=== PATIENT | male | born 1955 | race Caucasian/White ===

== ENCOUNTER 2023-02-20 06:30 | Day surgery (SDC) | payer OTHER, MEDICARE ==
--- NOTE | 2023-02-18 10:13 | RAD REPORT ---
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 Lungs: No evidence of edema or pneumonia. Pleural: No significant pleural effusions or pneumothorax. Cardiac: The heart size is within normal limits. Mediastinum: Within normal limits. Bones: No acute fractures. Other: None IMPRESSION: No acute cardiopulmonary disease.
[2023-02-18 10:20] LABS: Absolute Lymphocytes (CBC) 1.9 K/uL (0.7-4.9); Lymphocytes % 32.7 % (15.3-44.8); MCV 90.3 fL (80-100); Platelets 137 thou/uL (152-406); RBC Red Blood Cell Count 4.99 M/uL (4.33-5.43)
[2023-02-18 10:32] LABS: Potassium 4.1 mEq/L (3.5-5.1)
--- NOTE | 2023-02-18 17:56 | EKG ---
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
[2023-02-20] MEDS ORDERED: HEPARIN 5000 UNIT/ML 1 ML VIAL ONE (07:02)
[2023-02-20] MEDS ORDERED: VERAPAMIL HCL 10 MG/4 ML VIAL IV ONE (07:02)
[2023-02-20] MEDS ORDERED: MIDAZOLAM HCL 2 MG/2 ML INJ ONE (07:02)
[2023-02-20] MEDS ORDERED: LIDOCAINE 1% 20 ML MDV ONE (07:02)
[2023-02-20] MEDS ORDERED: FENTANYL CITR 100 MCG/2 ML ONE (07:02)
[2023-02-20] MEDS ORDERED: HEPA 1000U/500MLS 2,000 UNIT/1,000 ML BAG IV ONE (07:02)
[2023-02-20] MEDS ORDERED: CLOPIDOGREL 75 MG TABLET ONE (07:02)
[2023-02-20] MEDS ORDERED: NA CHLORIDE 0.9% 500 ML ONE (07:02)
[2023-02-20] MEDS ORDERED: HEPARIN 10,000 UNIT/10 ML VIAL IV ONE (07:03)
[2023-02-20] MEDS ORDERED: NITROGLYCERIN/D5W 25 MG/250 ML BTL IV ONE (07:03)
[2023-02-20] MEDS ORDERED: NITROGLYCERIN 100 MCG/ML SYR (for cath lab use only) IV ONE (07:03)
[2023-02-20] MEDS ORDERED: ASPIRIN 325 MG TAB ONE (07:03)
[2023-02-20] MEDS ORDERED: ATROPINE SULF 1 MG/10 ML SYR IV ONE (07:03)
[2023-02-20] MEDS ORDERED: TICAGRELOR 90 MG TABLET PO ONE (07:03)
[2023-02-20 09:04] VITALS: TEMP 97
[2023-02-20 10:36] VITALS: BP 123/63; O2SAT 99
--- NOTE | 2023-02-20 19:21 | OP ---
Date of Procedure: 02/20/2023 Surgeon: MINISTERIO SHELTON Procedures Performed: 1.Selective coronary angiogram. 2.Left heart catheterization. Indication: Unstable angina with abnormal stress test. Access: Right radial artery 6-Malay closed with TR band. Complications: None. Bleeding: Less than 20 mL. Description Of Procedure: After risks, benefits, alternatives were explained, patient agreed to proc eed and signed informal consent. Patient was brought into the cardiac catheterization laboratory, pr epped and draped in usual sterile fashion. Then I accessed right radial artery using pediatric micro puncture kit, placed 6-Malay Slender sheath and took 5-Malay Scalf 4.0 catheter into the aortic lindsay t over a J-wire, engaged the left main and then right coronary artery, took standard views and then t he catheter was pushed over the wire into the LV, measured the LVEDP and pullback did not record any gradient and then I removed the catheter and the sheath and placed TR band with good hemostasis. Findings: 1.Left main; distally occluded 60%. 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 3.Left circumflex; 90% to 99% ostial to proximal. 4.RCA; very large and dominant with proximal 60 and then proximal to mid 80% stenosis and then lumin al irregularities and the PLB has mid 60% stenosis. 5.Elevated LVEDP at 19 mmHg. Conclusion: Severe multivessel coronary artery disease. Recommendation: Transfer for emergent CABG. SR/MODL Voice ID: [id number] Report ID: [id number]
== END 2023-02-20 10:37 | disposition short-term general hospital (02) ==
LOC: CCL 06:30
PROVIDERS: ATTEND Internal Medicine
DX: I25.110 Atherosclerotic heart disease of native coronary artery with unstable angina pectoris (principal); I25.82 Chronic total occlusion of coronary artery; E78.2 Mixed hyperlipidemia; Z79.899 Other long term (current) drug therapy
CPT/HCPCS: 36415; 71046; 76937; 80048; 85025; 85610; 85730; 93005; 93458; C1893; J0461; J1644; J2001; J2250; J3010; J7040; Q9966

== ENCOUNTER 2023-05-13 07:11 | Day surgery (SDC) | payer OTHER, MEDICARE ==
[2023-05-09 15:40] LABS: Absolute Lymphocytes (CBC) 1.7 K/uL (0.7-4.9); Hematocrit 38.7 % (39.6-49.0); Lymphocytes % 32.4 % (15.3-44.8); MCV 86.3 fL (80-100); MPV 8.8 fL (7.6-11.3); Platelets 159 thou/uL (152-406); RBC Red Blood Cell Count 4.49 M/uL (4.33-5.43)
[2023-05-09 15:49] LABS: Protime INR 1.07
[2023-05-09 16:10] LABS: Potassium 4.3 mEq/L (3.5-5.1)
[2023-05-13] MEDS: Ringers Lactate 1,000 ML IV ONE (07:35)
[2023-05-13] MEDS ORDERED: CEFAZOLIN SODIUM 1 GM/VIAL ONE (07:43)
[2023-05-13] MEDS ORDERED: MIDAZOLAM HCL 2 MG/2 ML INJ ONE ×2 (08:16→13:32)
[2023-05-13] MEDS ORDERED: ROCURONIUM 50 MG/5 ML VIAL IV ONE (08:16)
[2023-05-13] MEDS ORDERED: FENTANYL CITR 100 MCG/2 ML ONE ×2 (08:16→13:32)
[2023-05-13] MEDS ORDERED: propofoL 200 MG/20 ML VIAL IV ONE (08:16)
[2023-05-13] MEDS ORDERED: KETOROLAC 30 MG/ML INJ ONE (08:16)
[2023-05-13] MEDS ORDERED: ONDANSETRON 4 MG/2 ML VIAL ONE (08:19)
[2023-05-13] MEDS ORDERED: LIDOCAINE 2% MPF 5 ML VIAL ONE (08:19)
[2023-05-13] MEDS ORDERED: KETAMINE HCL IN 0.9 % NACL 50 MG/5 ML SYRINGE IV ONE (08:28)
[2023-05-13] MEDS ORDERED: EPHEDRINE SULF 50 MG/ML VIAL ONE (09:09)
--- NOTE | 2023-05-13 09:39 | P.BOP ---
Preoperative diagnosis: tender right inguinal hernia Postoperative diagnosis: same Primary procedure: Laparoscopic repair of tender right inguinal hernia with mesh Estimated blood loss: <10cc Specimen: sac Findings: direct and indirect inguinal hernias Anesthesia: General Complications: None Implants: 3d medium Transferred to: Recovery Room Condition: Good
[2023-05-13] MEDS ORDERED: NEOSTIGMINE 1 MG/ML -10 ML VIAL ONE (09:47)
[2023-05-13] MEDS ORDERED: GLYCOPYRROLATE 0.2 MG/ML SYR ONE (09:47)
[2023-05-13 10:52] VITALS: TEMP 97.5; O2SAT 99
[2023-05-13] MEDS ORDERED: Ringers Lactate 1,000 ML IV ONE (11:22)
[2023-05-13] MEDS ORDERED: TAMSULOSIN 0.4 MG SR CAP PO ONE (12:08)
[2023-05-13] MEDS ORDERED: TAMSULOSIN 0.4 MG SR CAP ONE (12:28)
[2023-05-13 13:04] VITALS: BP 105/60
--- NOTE | 2023-05-14 11:59 | DS ---
Date of Discharge: 05/13/2023 Condition: Stable. Disposition: Home. Activity: As tolerated. No heavy lifting. Plan: Follow up in my office in 1 week. Call for appointment at [phone]. Cold compress of the right inguinal region for about 24 hours. Procedure: Laparoscopic repair of right inguinal hernia with mesh. Diagnosis: Tender right inguinal hernia. MAEGAN/NOLA Voice ID: [id number] Report ID: [id number]
--- NOTE | 2023-05-14 11:59 | OP ---
Date of Procedure: 05/13/2023 Surgeon: Chapo Murray MD Preoperative Diagnosis: Tender right inguinal hernia. Postoperative Diagnosis: Tender right inguinal hernia. Procedure: Laparoscopic repair of tender right inguinal hernia with mesh. Estimated Blood Loss: Less than 10 cc. Specimen: Hernia sac. Finding: Direct and indirect hernias. Anesthesia: General plus local. Complications: None. Implant: 3D medium mesh. Indications: This is a case of a 68-year-old patient who came to us with a tender right inguinal her alejandro. Laparoscopic versus open repair with mesh benefits, alternatives, and risks were fully explaine d to the patient which include, but not limited to, infection, bleeding, damage to adjacent structure s, anesthesia complication, recurrence, chronic pain, chronic numbness, IA, and even . He also understands this may not relieve any symptoms. He might need more than one surgical intervention. Kiera nickerson also explained the use of mesh pros and cons. He signed a consent. Description Of Procedure: The patient was brought to the operating room, placed in supine position. Anesthesia was done without complication. A time-out was called. The genitalia and abdomen were pr epped and draped in sterile fashion. Local anesthesia was applied followed by sharp incision of the skin in the infraumbilical region. Incision was carried down until we found the anterior rectus sun th that we opened on the right side. Muscle retracted laterally to expose the posterior rectus sheat h. The extraperitoneal space was gently developed with the help of blunt dissection. Then, a balloo n tip trocar was placed in that area directed to the pubic symphysis and the balloon was inflated und er direct visualization with the laparoscope. After that, we deflated the balloon, removed the ballo on and then inflated the area and put the cameras, under view with the cameras. At that moment, unde r direct visualization, we put a 5 mm trocar just above the pubic symphysis and another one half way between the first and the second one. Under direct visualization, we proceeded to develop the preper itoneal space even better, exposed the inferior epigastric vessels and keeping them anterior. Jed 's ligament was dissected laterally to a junction with the iliac veins. The dissection continued inf eriorly to the iliopubic tract avoiding damage to the femoral branch of the genitofemoral nerve and l ateral femoral cutaneous nerve. The cord structures were carefully skeletonized and we noticed two h ernias, one hernia in the cord structures and another one medial and lateral. The indirect hernia wa s carefully reduced into the abdominal cavity after gentle dissection and then the direct hernia sac was also reduced and the hernia sac was removed. No bleeding. At that moment, I introduced through the trocar site, a 3D mesh and placed it to cover direct and indirect spaces. The mesh was secured i n place lateral and superior to the iliopubic tract and inferior and medial to the Jed's ligament with the help of [employer]. After ensuring adequate hemostasis, while holding the mesh in place and m aking sure the hernia sac is still reduced, we proceeded to deflate the area under direct visualizati on. Trocars were removed. Anterior rectus sheath was closed with 3-0 chromic at the area with insuf flation was stopped and removed and then the skin was approximated with rebekah. Sponge counts and i nstrument counts were correct. Patient tolerated the procedure well. Patient was sent to Recovery i n stable condition. MAEGAN/NOLA Voice ID: [id number] Report ID: [id number]
== END 2023-05-13 12:51 | disposition home or self-care (01) ==
LOC: OR 07:11
PROVIDERS: ATTEND Surgery
PROC: 0YU54JZ Supplement Right Inguinal Region with Synthetic Substitute, Percutaneous Endoscopic Approach (ICD-10-PCS; principal; 2023-05-13 08:30)
DX: K40.90 Unilateral inguinal hernia, without obstruction or gangrene, not specified as recurrent (principal); Z95.1 Presence of aortocoronary bypass graft; Z79.82 Long term (current) use of aspirin
CPT/HCPCS: 85025; 80048; 36415; 85610; 88302; 85730; 49650; J2704; J2710; J2001; J2250 ×2; J3010; J2405; J7120 ×2; J0690